=== PATIENT | male | born 1980 | race Caucasian/White ===

== ENCOUNTER 2023-04-07 17:36 | Emergency (ER) | payer OTHER, SELFPAY ==
--- NOTE | ~2023-04-07 | XR_ITS ---
EXAM: XR lumbar spine min 4V DATE: 04/07/2023 18:13 HISTORY: low back pain with pain radiating down left leg, no trauma . COMPARISON: None available. FINDINGS: 5 nonrib-bearing lumbar-type vertebral bodies. Pedicles intact. Normal vertebral body alig nment. Vertebral body heights preserved. Multilevel marginal osteophytosis including a lateral bridgi ng osteophyte on the left at L2-3. Mild disc space narrowing at L4-5. Mild facet sclerosis in the low er lumbar spine. No fracture or dislocation. IMPRESSION: No acute fracture or traumatic malalignment in the lumbar spine. Mild lumbar degenerative disc disease in lower lumbar facet arthropathy. Reviewed, dictated and finalized at location K.
--- NOTE | 2023-04-07 17:39 | ED.GENADULT ---
HPI - General Adult General Chief complaint: Extremity Injury, Lower Stated complaint: lt leg pain Time Seen by Provider: 04/07/23 17:52 Source: patient and RN notes reviewed Mode of arrival: ambulatory Limitations: no limitations History of Present Illness HPI narrative: 42-year-old male presents to [facility] with complaints of left lower leg pain/numbness that started in early February. Patient states the pain started as left flank pain radiating to the left groin and down his left leg into the top of his foot in early February. Pain has since subsided. Patient states the numbness in the upper portion of the anterior right lower leg has continued. No injury. Walks with a normal gait. Also reports lower lumbar pain. Patient denies any loss retention or bladder or bladder. No numbness or tingling in any other part of the extremity. No saddle anesthesia Patient reports having an appointment with his primary care provider at [facility] on Friday 04/13 Onset (ago): week(s) Related Data Home Medications Medication Instructions Recorded Confirmed No Home Medications 04/07/23 04/07/23 Allergies Allergy/AdvReac Type Severity Reaction Status Date / Time No Known Allergies Allergy Verified 04/07/23 18:07 Review of Systems Review of Systems: All systems reviewed & are unremarkable except as noted in HPI and below Constitutional: Constitutional: Reports no additional constitutional complaints Eyes: Eyes: Reports no additional eye complaints ENT: Reports system reviewed and no additional complaints, except as documented Cardiovascular: Cardiovascular: Reports no additional cardiovascular complaints, Denies chest pain and Denies dyspnea Respiratory: Respiratory: Reports no additional respiratory complaints, Denies chest congestion, Denies cough and Denies dyspnea Gastrointestinal: Gastrointestinal: Reports no additional gastrointestinal complaints, Denies abdominal pain, Denies nausea and Denies vomiting Musculoskeletal: Musculoskeletal: Reports as per HPI Integumentary/Breasts: Skin/Breast: Reports system reviewed and no additional complaints, except as docu Neurologic: Reports as per HPI Psychiatric: Psychiatric: Reports no additional psychiatric complaints Allergic/Immunologic: Allergic/Immunologic: Reports no additional allergic/immunologic complaints PMFSH Comments At the time of my signature, I reviewed and agree with the nursing past medical, surgical, social, and family history. There is no relevant family history pertinent to the patient complaint. Exam Const: General: cooperative, healthy appearing, comfortable, no acute distress, well developed, alert and well nourished Nutritional Appearance: well nourished Orientation/consciousness: patient oriented x3 Limitations: no limitations HENMT: Head: normal to inspection Ears: hearing grossly normal bilaterally and external ears normal Face/Nose/Sinus: Normal external nose present, Normal nares present, Normal nasal mucous membranes and turbinates present and normal facial exam Face and sinus: normal facial exam Eyes: General: appearance normal, both eyes and all related structures Alignment and Position: alignment normal Periorbital: periorbital findings normal Pupils: Equal, round and reactive pupils present EOM: EOMs intact bilaterally Neck: Neck: normal visual inspection, full ROM, no lymphadenopathy and no meningeal signs Chest: Chest palpation & inspection: normal inspection of the chest Resp: Effort & Inspection: normal respiratory effort and able to speak in complete sentences Cardio: Rate: regular rate Rhythm: regular rhythm Back/Spine/Pelvis: Cervical Spine: cervical ROM normal Thoracic/Lumbar Spine: thoraco-lumbar ROM normal, No pain with thoraco-lumbar ROM, paraspinal muscle tenderness bilaterally in the lower lumbar, No thoracic spinal tenderness and lumbar spinal tenderness at L5 Pelvis: no pain with anterior-posterior syl
[2023-04-07 17:54] VITALS: BP 125/75; PULSE 69; RESP 18; TEMP 36.7; O2SAT 100
== END 2023-04-07 18:40 | disposition home or self-care (01) ==
PROVIDERS: Emergency Provider Nurse Practitioner
DX: M51.36 Other intervertebral disc degeneration, lumbar region (principal); M54.16 Radiculopathy, lumbar region
CPT/HCPCS: 72110; 99213; G0463